=== PATIENT | female | born 1950 | race Caucasian/White ===

== ENCOUNTER 2022-03-13 16:51 | Emergency (ER) | payer MEDICARE, OTHER ==
[2022-03-13] MEDS ORDERED: AMOX TR-K CLV1 EAC4 PO (21:09)
== END 2022-03-13 21:51 | disposition home or self-care (01) ==
LOC: ER1 16:51
DX: S62.632B Displaced fracture of distal phalanx of right middle finger, initial encounter for open fracture (principal); S60.131A Contusion of right middle finger with damage to nail, initial encounter; S61.212A Laceration without foreign body of right middle finger without damage to nail, initial encounter; Z88.0 Allergy status to penicillin; W23.1XXA Caught, crushed, jammed, or pinched between stationary objects, initial encounter; Y92.009 Unspecified place in unspecified non-institutional (private) residence as the place of occurrence of the external cause
CPT/HCPCS: 73130; 96374; 99283; J0690